=== PATIENT | female | born 1970 | race African-American/Black ===

== ENCOUNTER 2024-05-09 09:16 | Emergency (ER) | payer MEDICAID, OTHER ==
[~2024-05-09] VITALS: Ht 165.1 cm; Wt 85.0 kg
[2024-05-09 09:22] VITALS: O2SAT 99
[2024-05-09] MEDS: ONDANSETRON HCL 4MG/2ML INJ IV ONE (10:00)
[2024-05-09 10:58] LABS: BASOPHILS % 0.6 % (0.0-2.0); EOSINOPHILS % 4.1 % (0.0-5.0); HEMATOCRIT. 39.3 % (36.0-48.0); HEMOGLOBIN. 12.9 g/dL (12.0-16.0); LYMPHOCYTES % 27.1 % (20.0-50.0); MEAN CORPUSCULAR HEMOGLOBIN 28.5 pg (28.0-32.0); MEAN CORPUSCULAR HGB CONC 32.9 g/dL (31.0-37.0); MEAN CORPUSCULAR VOLUME 86.7 fL (81.0-99.0); MEAN PLATELET VOLUME 7.7 fl (7.4-10.4); MONOCYTES % 5.7 % (2.0-8.0); NEUTROPHILS % 62.5 % (40.0-76.0); PLATELET 313 x1000/uL (130-400); RED BLOOD CELL COUNT 4.53 mill/uL (4.2-5.4); RED CELL DISTRIBUTION WIDTH 14.5 % (11.6-14.6); WHITE BLOOD COUNT 7.5 x1000/uL (4.5-11.0)
[2024-05-09 11:09] LABS: D-DIMER 0.45 mg/L FEU (<0.50); INR 0.9; PROTHROMBIN TIME 9.9 sec (9.6-11.0)
[2024-05-09 11:12] LABS: CHLORIDE 107 mEq/L (98-107); POTASSIUM 4.2 mEq/L (3.5-5.1); SODIUM 140 mEq/L (136-145)
[2024-05-09 11:13] LABS: CALCIUM 8.9 mg/dL (8.7-10.4); CARBON DIOXIDE 25 mEq/L (21-32)
[2024-05-09 11:18] LABS: CREATININE 0.7 mg/dL (0.6-1.0); GLUCOSE 103 mg/dL (70-105); UREA NITROGEN BLOOD 22 mg/dL (9-23)
[2024-05-09 11:19] LABS: ALANINE AMINOTRANSFERASE 23 IU/L (10-49)
[2024-05-09 11:20] LABS: ALBUMIN 4.2 g/dL (3.2-4.8); ASPARTATE AMINOTRANSFERASE 20 IU/L (<34); BILIRUBIN DIRECT 0.1 mg/dL (<=3.0); BILIRUBIN TOTAL 0.4 mg/dL (0.1-1.0); PROTEIN TOTAL 7.3 g/dL (6.0-8.3); TROPONIN I HIGH SENSITIVITY < 4 ng/L (3.0-34)
[2024-05-09] MEDS ORDERED: CEFTRIAXONE 2GM/50ML 50 ML IV ONE (13:15)
[2024-05-09] MEDS ORDERED: ONDA-239 PO (13:21)
[2024-05-09] MEDS: METRONIDAZOLE 500 MG PREMIX 100 ML IV ONE (13:47)
[2024-05-09] MEDS: CEFTRIAXONE 2GM/50ML 50 ML IV NR (15:14)
[2024-05-09] MEDS: IOHEXOL-350 100 ML BOTTLE ONE (15:14)
[2024-05-09 15:40] VITALS: BP 117/66; PULSE 80; RESP 18; TEMP 36.7; O2SAT 100
== END 2024-05-09 15:49 | disposition home or self-care (01) ==
LOC: ER 09:16 → CANBEDREQ 13:35 → ER 15:49
DX: K75.0 Abscess of liver (principal); R11.2 Nausea with vomiting, unspecified; Z72.0 Tobacco use; Z88.2 Allergy status to sulfonamides; Z98.890 Other specified postprocedural states
CPT/HCPCS: 99285; 74177; 96365; 96375; 80076; 80048; 83605; 83690; 85025; 85379; 85610; 87040; 84484; 36415; 93005; Q9967; J0696; J3490; J2405